=== PATIENT | female | born 1995 | race American Indian/Alaskan Native ===

== ENCOUNTER 2023-03-12 18:23 | Emergency (ER) | payer MEDICAID ==
[2023-03-12] MEDS ORDERED: Ibuprofen 400 MG Tab PO ONE (19:32)
[2023-03-12] MEDS ORDERED: Take Home: Benzonatate 100 MG, 6 Cap Pack PO ONE (21:15)
[2023-03-12] MEDS ORDERED: Albuterol 6.7 GM Inhaler INH ONE (21:15)
== END 2023-03-12 21:32 | disposition home or self-care (01) ==
LOC: DL.ED 18:23
DX: R09.1 Pleurisy (principal); J06.9 Acute upper respiratory infection, unspecified; Z88.0 Allergy status to penicillin; Z20.822 Contact with and (suspected) exposure to COVID-19
CPT/HCPCS: 71046; 87635; 93010; 99284; A9270; U0002

== ENCOUNTER 2023-11-01 08:08 | Emergency (ER) | payer MEDICAID ==
[2023-11-01 08:26] LABS: APPEARANCE,URINE CLOUDY (CLEAR); BILIRUBIN,URINE NEGATIVE (NEGATIVE); COLOR,URINE YELLOW (YELLOW); GLUCOSE,URINE NEGATIVE (NEGATIVE); KETONES,URINE NEGATIVE (NEGATIVE); LEUKOCYTE ESTERASE,URINE TRACE (NEGATIVE); NITRITE,URINE NEGATIVE (NEGATIVE); OCCULT BLOOD,URINE LARGE (NEGATIVE); PH,URINE 5.5 (5.0-9.0); PROTEIN,URINE >=300 (NEGATIVE); UROBILINOGEN,URINE 0.2 mg/dL (0.2-1.0)
[2023-11-01 08:48] LABS: WBC,URINE >100 /HPF (0-5/HPF)
[2023-11-01 08:49] LABS: BACTERIA,URINE MODERATE /HPF (0-FEW/HPF); EPITHELIAL CELLS,URINE MODERATE /HPF (NOT SEEN); MUCUS,URINE FEW /LPF (NOT SEEN); RBC,URINE 20-30 /HPF (0-5)
[2023-11-01 08:50] LABS: AMORPHOUS SEDIMENT,URINE FEW /HPF (NOT SEEN)
== END 2023-11-01 09:10 | disposition home or self-care (01) ==
LOC: DL.ED 08:08
DX: N39.0 Urinary tract infection, site not specified (principal); Z79.899 Other long term (current) drug therapy; Z88.0 Allergy status to penicillin
CPT/HCPCS: 81001; 81025; 87086; 87088; 87186; 99283

== ENCOUNTER 2024-03-31 15:57 | Emergency (ER) | payer BC, MEDICAID ==
[2024-03-31] MEDS: Dexamethasone 4 MG/ML SDV IM ONE (16:29)
== END 2024-03-31 16:43 | disposition home or self-care (01) ==
LOC: DL.ED 15:57
DX: M54.50 Low back pain, unspecified (principal); F17.210 Nicotine dependence, cigarettes, uncomplicated; Z88.0 Allergy status to penicillin
CPT/HCPCS: 96372; 99283; J1100

== ENCOUNTER 2024-06-03 08:38 | Emergency (ER) | payer BC, MEDICAID ==
[2024-06-03 09:14] LABS: APPEARANCE,URINE CLOUDY (CLEAR); BILIRUBIN,URINE NEGATIVE (NEGATIVE); COLOR,URINE YELLOW (YELLOW); GLUCOSE,URINE NEGATIVE (NEGATIVE); KETONES,URINE NEGATIVE (NEGATIVE); LEUKOCYTE ESTERASE,URINE MODERATE (NEGATIVE); NITRITE,URINE NEGATIVE (NEGATIVE); OCCULT BLOOD,URINE LARGE (NEGATIVE); PH,URINE 6.5 (5.0-9.0); PROTEIN,URINE 100 (NEGATIVE); UROBILINOGEN,URINE 0.2 mg/dL (0.2-1.0)
[2024-06-03 09:31] LABS: BACTERIA,URINE MODERATE /HPF (0-FEW/HPF); EPITHELIAL CELLS,URINE FEW /HPF (NOT SEEN); WBC,URINE PACKED /HPF (0-5/HPF)
[2024-06-03 09:32] LABS: MUCUS,URINE FEW /LPF (NOT SEEN)
== END 2024-06-03 09:55 | disposition home or self-care (01) ==
LOC: DL.ED 08:38
DX: N39.0 Urinary tract infection, site not specified (principal); Z88.0 Allergy status to penicillin
CPT/HCPCS: 81001; 87086; 87088; 87186; 99283